=== PATIENT | female | born 1975 | race African-American/Black ===

== ENCOUNTER 2017-03-29 10:18 | Emergency (ER) | payer MEDICAID ==
[~2017-03-29] VITALS: Ht 175.3 cm; Wt 77.0 kg
[2017-03-29 10:58] VITALS: BP 123/63
[2017-03-29] MEDS ORDERED: ONDANSETRON 4MG ODT PO ONE (11:15)
[2017-03-29 11:28] LABS: CLARITY URINE CLOUDY (CLEAR); COLOR URINE YELLOW (YELLOW); GLUCOSE URINE NEGATIVE (NEGATIVE); KETONES URINE 1+ (NEGATIVE); LEUKOCYTE ESTERASE URINE 3+ (NEGATIVE); NITRITE URINE NEGATIVE (NEGATIVE); OCCULT BLOOD URINE TRACE (NEGATIVE); PH URINE 7.5 (4.5-8.0); PROTEIN URINE NEGATIVE (NEGATIVE)
[2017-03-29] MEDS ORDERED: AZITHROMYCIN 40MG/ML SUSP 5ML ORAL SYR PO ONE (11:30)
[2017-03-29] MEDS ORDERED: LIDOCAINE HCL 1% 20ML VIAL (Pyxis) INJ MC ONE (11:30)
[2017-03-29] MEDS ORDERED: CEFTRIAXONE SODIUM 1 G/VIAL IM ONE (11:30)
[2017-04-01 04:13] LABS: CHLAMYDIA TRACHOMATIS NAA Negative (Negative); NEISSERIA GONORRHOEAE NAA Negative (Negative)
== END 2017-03-29 13:18 | disposition home or self-care (01) ==
LOC: ER 11:06
DX: O26.891 Other specified pregnancy related conditions, first trimester (principal); O21.9 Vomiting of pregnancy, unspecified; A59.01 Trichomonal vulvovaginitis; F12.10 Cannabis abuse, uncomplicated; R53.83 Other fatigue
CPT/HCPCS: 36415; 81001; 81025; 84702; 87210; 87491; 87591; 99284; J3490; Q0162; Z7610; J0696

== ENCOUNTER 2017-06-07 14:47 | Emergency (ER) | payer MEDICAID ==
[~2017-06-07] VITALS: Ht 172.7 cm; Wt 76.0 kg
[2017-06-07 22:51] LABS: CHLORIDE 107 mEq/L (98-107)
[2017-06-07 22:54] LABS: CARBON DIOXIDE 29 mEq/L (21-32)
[2017-06-07 23:01] LABS: BASOPHILS % 0.5 % (0.0-2.0); HEMATOCRIT. 36.2 % (36.0-48.0); HEMOGLOBIN. 12.2 g/dL (12.0-16.0); LYMPHOCYTES % 36.8 % (20.0-50.0); MEAN PLATELET VOLUME 7.7 fl (7.4-10.4); MONOCYTES % 9.7 % (2.0-8.0); PLATELET 194 x1000/uL (130-400); RED BLOOD CELL COUNT 3.94 mill/uL (4.2-5.4); RED CELL DISTRIBUTION WIDTH 13.4 % (11.6-14.6)
[2017-06-07 23:23] LABS: CLARITY URINE CLEAR (CLEAR); COLOR URINE YELLOW (YELLOW); GLUCOSE URINE NEGATIVE (NEGATIVE); KETONES URINE NEGATIVE (NEGATIVE); LEUKOCYTE ESTERASE URINE 2+ (NEGATIVE); NITRITE URINE NEGATIVE (NEGATIVE); OCCULT BLOOD URINE NEGATIVE (NEGATIVE); PH URINE 6.5 (4.5-8.0); PROTEIN URINE NEGATIVE (NEGATIVE); SPECIFIC GRAVITY URINE 1.023 (1.005-1.030)
[2017-06-07] MEDS ORDERED: CEFTRIAXONE SODIUM 250 MG/VIAL IM ONE (23:30)
[2017-06-07] MEDS ORDERED: LIDOCAINE HCL 1% 20ML VIAL (Pyxis) INJ MC ONE (23:30)
[2017-06-08 00:05] VITALS: BP 110/57
[2017-06-11 07:24] LABS: CHLAMYDIA TRACHOMATIS NAA Negative (Negative); NEISSERIA GONORRHOEAE NAA Negative (Negative)
== END 2017-06-08 00:27 | disposition home or self-care (01) ==
LOC: ER 21:44
DX: N73.9 Female pelvic inflammatory disease, unspecified (principal); Z20.2 Contact with and (suspected) exposure to infections with a predominantly sexual mode of transmission; Z91.14 Patient's other noncompliance with medication regimen
CPT/HCPCS: 36415; 80053; 81001; 81025; 85025; 87210; 87491; 87591; 96372; 99284; J0696; J3490; Z7610

== ENCOUNTER 2021-07-07 12:07 | Emergency (ER) | payer MEDICAID ==
[~2021-07-07] VITALS: Ht 167.6 cm; Wt 78.0 kg
[2021-07-07] MEDS ORDERED: AZITHROMYCIN 500 MG in DEXT 5% WATER 250 ML IV ONE (12:45)
[2021-07-07] MEDS ORDERED: ASPIRIN 81MG TABLET PO ONE (12:45)
[2021-07-07] MEDS ORDERED: CEFTRIAXONE 1 G PREMIX 50 ML IV ONE (12:45)
[2021-07-07] MEDS ORDERED: ACETAMINOPHEN 325MG TABLET PO ONE (13:00)
[2021-07-07] MEDS ORDERED: NITROGLYCERIN 0.4MG TABLET SL SL PRN (13:00)
[2021-07-07 14:10] LABS: BASOPHILS % 0.5 % (0.0-2.0); EOSINOPHILS % 2.2 % (0.0-5.0); HEMATOCRIT. 37.2 % (36.0-48.0); HEMOGLOBIN. 12.7 g/dL (12.0-16.0); LYMPHOCYTES % 8.3 % (20.0-50.0); MEAN CORPUSCULAR VOLUME 90.3 fL (81.0-99.0); MEAN PLATELET VOLUME 7.4 fl (7.4-10.4); MONOCYTES % 8.5 % (2.0-8.0); NEUTROPHILS % 80.5 % (40.0-76.0); PLATELET 212 x1000/uL (130-400); RED BLOOD CELL COUNT 4.11 mill/uL (4.2-5.4); RED CELL DISTRIBUTION WIDTH 12.9 % (11.6-14.6)
[2021-07-07 14:17] LABS: CHLORIDE 106 mEq/L (98-107)
[2021-07-07 14:22] LABS: D-DIMER 0.69 mg/L FEU (<0.50); PARTIAL THROMBOPLASTIN TIME 28.3 sec (23.4-31.0); PROTHROMBIN TIME 10.7 sec (9.6-11.0)
[2021-07-07] MEDS ORDERED: AZIT250T PO (15:54)
[2021-07-07] MEDS ORDERED: PANTOPRAZOLE SODIUM 40 MG/VIAL IV ONE (18:45)
[2021-07-07] MEDS ORDERED: SODIUM CHLORIDE 0.9% 1,000 ML IV ONE (18:45)
[2021-07-08] MEDS ORDERED: IBUPROFEN 600MG TABLET PO SCH (00:15)
[2021-07-08] MEDS ORDERED: ACETAMINOPHEN 500MG TABLET PO SCH (00:15)
[2021-07-08 00:42] VITALS: BP 118/68
== END 2021-07-08 00:43 | disposition home or self-care (01) ==
LOC: ER 12:07 → CANBEDREQ 07-08 03:13
DX: U07.1 COVID-19 (principal); R07.89 Other chest pain; R50.9 Fever, unspecified; R06.02 Shortness of breath; M32.9 Systemic lupus erythematosus, unspecified; Z79.899 Other long term (current) drug therapy
CPT/HCPCS: 36415; 71045; 80053; 83605; 83880; 84145; 84484; 85025; 85379; 85610; 85730; 87040; 93005; 96361; 96365; 96366; 96368; 96375; 99285; C9113; C9803; J0456; J0696; J7030; J7060; U0003; U0005; Z7610